=== PATIENT | male | born 1940 | race Caucasian/White ===

== ENCOUNTER 2017-04-14 12:34 | Inpatient (IN) ==
[2017-04-14] MEDS ORDERED: Ipratropium/Albuterol Neb 3 ML IH ONE (12:44)
--- NOTE | 2017-04-14 12:45 | Emergency Department Note ---
START Narrative - START START: I examined this patient and my medical decision-making was reviewed with the Resident Physician. I agree with the documented findings, disposition and treatment plan as described except to the extent set forth below. 77-year-old male presented to our ER [facility] for shortness of breath and elevated troponin. Patient has a history of COPD but does not wear home oxygen. Had been feeling more short of breath recently. Was discovered to have a CO2 of nearly 80 on his ABG at the [facility] as well as an elevated troponin. He has no history of coronary disease. will repeat cxr, abg here admit to hospitalist for copd exacerbation and CO2 retention
[2017-04-14] MEDS ORDERED: Aspirin 81 MG TAB.CHEW PO STA (12:48)
[2017-04-14] MEDS ORDERED: methylPREDNISolone 125 MG/2 ML VIAL IVP ONE (12:48)
--- NOTE | 2017-04-14 13:15 | Emergency Department Note ---
Disposition Clinical Impression: Acute exacerbation of chronic obstructive airways disease, Hypoxia, Hypercapnia , Elevated troponin Dyspnea Qualifiers: Dyspnea type: unspecified Qualified Code(s): R06.00 - Dyspnea, unspecified Disposition: Admitted As Inpatient Condition: Good Time of Disposition: 14:14 SOB HPI - General Chief Complaint: ED Shortness of Breath/Dyspnea Stated Complaint: domenic Time Seen by Provider: 04/14/17 12:41 Source: patient, family, EMS Mode of arrival: EMS Limitations: no limitations Nursing Notes Reviewed: Yes Vital Signs Reviewed: Yes - History of Present Illness 77-year-old male history of COPD not on home oxygen supplementation presents to the ED via EMS from the [facility] with shortness of breath and hypoxia. Patient reports since Sunday, last 4 days he has been congested with nonproductive cough and worsening shortness of breath. He has reported tactile fevers no chills. No chest pain. He does not have inhalers at home. Former smoker quit . He has also been feeling fatigued and not sleeping well. He was seen and evaluated at the [facility] for the symptoms and was found to be hypoxic 80% on room air. He came up appropriately with 2 L nasal cannula oxygen supplementation but with any exertion would drop back down. Patient was placed on BiPAP and sent here for further evaluation. On arrival respiratory was in the room with a BiPAP machine ready for transfer, he appeared in no respiratory distress. He reports significant improvement of his symptoms after breathing treatment. We play some back on 2 L nasal cannula and is oxygen saturation remains 93%. Review of his labs from the [facility] showed elevation of his troponin 0.082 as well as hypercapnia 78 and O2 60. He had a slight acidosis 7.31. Creatinine function is normal 1.03. Patient denies history of cardiac ischemic disease or stent placements. He has history of hypertension. He normally takes a baby aspirin at night, full dose aspirin given here as he denies any bloody stool or blacked tarry stools. He has diminished breath sounds with wheezing bilaterally, steroids given here. Review of his EKG performed it did not reveal acute ischemic changes or ST elevation. A chest x-ray was performed at the facility but no report or disc is available. Will repeat the chest x- ray here. Patient will likely need admission for his hypoxia and likely COPD exacerbation. There in agreement with this plan. Pt Subjective Complaint: shortness of breath, cough - Related Data Home Medications Medication Instructions Recorded Confirmed Aspirin [Adult Low Dose Aspirin EC] 81 mg PO QPM 07/29/15 07/29/15 Docusate [Colace] 100 mg PO QPM 07/29/15 07/29/15 Simvastatin [Zocor] 10 mg PO DAILY 07/29/15 07/29/15 Vit A/C/E AC/Znox/Cupric Oxide 1 tab PO DAILY 07/29/15 07/29/15 [Eye Vitamin-Minerals Tablet] Allergies Allergy/AdvReac Type Severity Reaction Status Date / Time No Known Allergies Allergy Verified 04/14/17 13:15 All systems ED: reviewed and negative except as stated. Review of Systems: As Per HPI Constitutional: Reports: fever (Tactile) ENT ED: Reports: congestion Cardiovascular: Reports: dyspnea on exertion. Denies: chest pain Respiratory: Reports: cough, dyspnea, wheezes Gastrointestinal: Denies: abdominal pain, nausea, vomiting Genitourinary: Denies: urgency, dysuria Musculoskeletal: Denies: back pain, neck pain Integumentary: Denies: rash, abrasion, lesions Neurological: Denies: headache Past Medical History - Past Medical History Attestation: Yes The following information was validated with the patient. Source: patient Medical history: Reports: arthritis, cancer, hypertension Surgical history: Reports: prostatectomy Psychiatric history: Reports: no psych history - Social History Smoking Status: Former smoker Alcohol use: Reports: none Drug use: Reports: none Physical Exam - General Limitations: no limitations General appearance: alert, in no apparent distress - Head Head exam: atraumatic, normocephalic, normal inspection - Neck Neck exam: Present: normal inspection, full ROM, trachea midline. Absent: tenderness, meningismus - Chest Chest inspection: Present: normal inspection, symmetric chest wall rise. Absent : tenderness - Respiratory Respiratory exam: Present: wheezes (Diffuse bilaterally). Absent: stridor, accessory muscle use - Expanded Respiratory Exam Location: wheezes: Left, Right, decreased breath sounds: Lower - Cardiovascular Cardiovascular exam: Present: regular rate, normal rhythm, normal heart sounds - Abdominal Exam Abdominal exam: Present: soft, Non-Tender, normal bowel sounds. Absent: tenderness, distention, guarding, rebound, rigidity - Extremities Exam Extremities exam: Present: normal inspection, full ROM, normal capillary refill. Absent: tenderness, pedal edema, calf tenderness - Neurological Exam Neurological exam: Present: alert, oriented X3 - Skin Skin exam: Present: warm, dry, intact, normal color. Absent: rash, cyanosis, diaphoresis Course Course Narrative: 77-year-old male presents with worsening dyspnea, respiratory distress, hypoxia. Patient initially arrived on BiPAP with good oxygen saturation. We play some on 2 L nasal cannula with good oxygen saturation in the lower 90s. He appears in no respiratory distress at this time. No chest pain. History upon and was elevated at outside facility 0.082. He denies any chest pain during the last week or today. He was given an aspirin. Continues to be wheezing bilaterally on examination. Plan admit for COPD exacerbation. Repeat chest x-ray to evaluate for possible pneumonia. Does not appear he was given steroids, given does here. Patient is agreeable to admission. No further questions or interventions at this time. - Reevaluation(s) Reevaluation #1: Repeat of his arterial blood gas shows retained CO2 at 79. His oxygen saturation as improved 88 from 60. pH is 7.3. This is likely a acute or chronic hypoxia hypercapnia as he is partially compensated with HCO3 of 40. Patient remains awake alert and oriented to person place and time. No acute respiratory distress. At this time will hold off on BiPAP and continue nasal cannula. Goal of oxygen saturation 92% patients in agreement with plan for admission. Impression is hypoxia, hypercapnia, COPD exacerbation, elevated troponin. Repeat troponin performed here will place him on 1 mg per kilogram Lovenox. Again he denies any blood in the stool or black tarry stools. - Consultations Consultation #1: Spoke with on-call hospitalist blanca Whaley to admit for COPD exacerbation, wheezing, hypoxia, hypercapnia suspect acute on chronic, elevated troponin. No further orders at this time Time: 14:13 Vital Signs Temperature 98.5 F 04/14/17 12:46 Pulse Rate 79 04/14/17 12:46 Respiratory Rate 20 04/14/17 12:46 Blood Pressure 135/82 04/14/17 12:46 O2 Sat by Pulse Oximetry 93 04/14/17 12:46 Temperature 98.5 F 04/14/17 12:46 Pulse Rate 79 04/14/17 13:22 Respiratory Rate 20 04/14/17 13:22 Blood Pressure 146/67 04/14/17 13:22 O2 Sat by Pulse Oximetry 96 04/14/17 13:22 Oxygen Delivery Oxygen Delivery Nasal Cannula Shortness of Breath/Dyspnea - MDM Narrative Medical decision making narrative: Patient was discussed with my attending physician who agrees with ED management and final disposition. They independently evaluated the patient. Please refer to their attestation to this encounter for additional information. This note was generated by [employer] voice recognition software and as a result grammatical or spelling errors may occur using this program. - Medical Records Medical records reviewed: Yes I reviewed the patient's medical records. - Lab Data Lab results reviewed: Yes I reviewed the patient's lab results. Lab Results 04/14/17 Range/Units 13:49 ABG pH 7.30 L (7.32-7.45) pH Units ABG pCO2 79 H* (35-45) mmHg ABG pO2 88 (85-104) mmHg ABG HCO3 40 H (21-27) mEq/L ABG Total CO2 42 H (20-26) mEq/L ABG O2 Saturation 95 (95-98) % ABG Base Excess 9 H (-2 to 3) mEq/L Person Notif of Crit RESP - Radiology Data Radiology results reviewed: Yes I reviewed the patient's radiology results. Chest X-Ray 04/14/17 12:45 IMPRESSION: Low lung volumes without acute disease. D/ / Amandeep Helton MD / Amandeep Helton MD Interpreting Provider: Amandeep Helton MD - EKG Data EKG attestation: Yes I reviewed and interpreted this EKG. EKG results narrative: EKG performed 1238 normal sinus rhythm 78 bpm normal axis, no ST elevations or depression, no T wave inversion, good R wave progression, intervals are within normal limits. Compared to old EKG performed outside hospital at 0922 shows similar consistent findings. Incomplete right bundle branch block seen in V1 no ST elevations or depressions. No acute ischemic changes.
[2017-04-14 13:56] LABS: ABG Base Excess 9 mEq/L (-2 to 3); ABG HCO3 40 mEq/L (21-27); ABG Oxygen Saturation 95 % (95-98); ABG PCO2 79 mmHg (35-45); ABG PO2 88 mmHg (85-104); ABG TCO2 42 mEq/L (20-26)
[2017-04-14] MEDS ORDERED: *HR* Enoxaparin 100 MG/ML SYRINGE SQ STA (14:15)
[2017-04-14] MEDS ORDERED: Naloxone 0.4 MG/ML INJ IVP PRN (15:16)
[2017-04-14] MEDS ORDERED: Acetaminophen 325 MG TABLET PO PRN (15:16)
[2017-04-14] MEDS ORDERED: Ondansetron 4 MG/2 ML VIAL IVP PRN (15:16)
[2017-04-14] MEDS ORDERED: Albuterol 2.5 MG/3 ML NEBULIZER IH PRN (15:21)
--- NOTE | 2017-04-14 15:37 | Internal Med History&Physical ---
Date of Encounter: 04/14/17 Time of Encounter: 15:37 Assessment and Plan (1) Respiratory failure with hypoxia and hypercapnia Current visit: Yes Status: Acute Patient has hx of COPD and is not oxygen dependent, suspect failure secondary to COPD exacerbation. continue with oxygen titrating to maintain spo2>92% will check for flu as well Qualifiers: Chronicity: acute Qualified Code(s): J96.01 - Acute respiratory failure with hypoxia; J96.02 - Acute respiratory failure with hypercapnia; J96.02 - Acute respiratory failure with hypercapnia; J96.02 - Acute respiratory failure with hypercapnia (2) Acute exacerbation of chronic obstructive airways disease Current visit: Yes Status: Acute 1 Has hx of COPD non oxygen dependent Has been experiencing SOB x 4 days with cough and congestion. CXR negative ABG acidosis, continue with oxygen titrating to maintain SPO2 > 92% continue with bronchodilators continue with steroid to taper will swab for flu- did have sick exposure- no flu vaccine (3) Elevated troponin Current visit: Yes Status: Acute 1 on presentation 0.08 now 0.06 trending down, suspect demand ischemia. No CP no change in EKG we will continue to trend cont cardiac monitoring If any chest pain develops or Trop trends up will start Heparin drip and consult cardiology cont with ASA (4) DVT prophylaxis Current visit: No Status: Acute lovenox (5) Hypertension Current visit: Yes Status: Chronic continue with home medications lisinopril HCTZ Qualifiers: Hypertension type: essential hypertension Qualified Code(s): I10 - Essential (primary) hypertension Internal Medicine - H&P: HPI Chief complaint: SOB Admitted From: Emergency Dept Plans for Post Hospital Care: Home History of present illness: Mr. Bright is a 77 year old male past medical hx of of COPD HTN prostrate CA 8 yrs ago. Patient has been experiencing SOB congestion and nonproductive cough for the past 4 days . He admits to subjective fevers no chills. He denies any CP. He has not been sleeping well. He was exposed to illness, URI. He is previous smoker quit in 1989. He denies any cardiac hx [facility] found to be hypoxic with SpO2 in the 80% on room air. Lab work did reveal elevated troponin . He was plaved on 2L NC and eventually placed on Bipap He was transferred to this facility for further evaluation. ABG obtained upon arrival ABG did show resp acidosis . Acccording to records he was wheezing he was given duonebs steroids and breathing state improved. He has been admited for further workup and evaluation. Presently he denies any CP or SOB hemodynamically stable I reviewed this case with DR Harris Past Med Surg Social Fam HX - Past Medical History Medical history: arthritis, cancer, hypertension Psychiatric history: no psych history - Past Surgical History Surgical History: prostatectomy - Social History Smoking Status: Former smoker Alcohol use: none Drug use: none - Family History Mother Living Status: Hx Family Cardiac Disorders: No Hx Family Medical Disorders: Yes (multiple sclerosis) Father Living Status: Hx Family Cardiac Disorders: No Brother Living Status: Hx Family Cardiac Disorders: Yes Internal Medicine - H&P: Meds Aspirin [Adult Low Dose Aspirin EC] 81 mg PO QPM 07/29/15 [History] Docusate [Colace] 100 mg PO QPM 07/29/15 [History] Vit A/C/E AC/Znox/Cupric Oxide [Eye Vitamin-Minerals Tablet] 1 tab PO DAILY 11/05 [History] Cholecalciferol (Vitamin D3) [Vitamin D] 2,000 unit PO DAILY 04/14/17 [History] Hydrochlorothiazide [Microzide] 12.5 mg PO DAILY 04/14/17 [History] Lisinopril [Zestril] 10 mg PO DAILY 04/14/17 [History] Tamsulosin [Flomax] 0.8 mg PO DAILY 04/14/17 [History] 3 Allergy/AdvReac Type Severity Reaction Status Date / Time No Known Allergies Allergy Verified 04/14/17 13:15 All Systems PM: A 10-system review of systems was performed and is negative for pertinent findings except as documented above in the HPI. - Constitutional Constitutional: fatigue, no chills, no fever(s), no night sweats - EENT Eyes: no change in vision, no discharge, no pain, no photophobia Nose, mouth and throat: no dysphagia, no nasal discharge, no neck pain, no sore throat - Cardiovascular Cardiovascular ROS IM: dyspnea, no chest pain, no diaphoresis, no lightheadedness, no palpitations, no syncope - Respiratory Respiratory: cough, wheezing, no dyspnea, no excessive phlegm production - Gastrointestinal Gastrointestinal: no abdominal pain, no diarrhea, no hematemesis, no hematochezia, no melena, no nausea, no vomiting - Musculoskeletal Musculoskeletal ROS IM: no numbness, no tingling - Integumentary Integumentary IM: no rash, no unusual bruising - Neurological Neurological ROS: no confusion, no convulsions, no focal weakness, no numbness, no tingling, no tremor(s) - Hematologic/Lymphatic Hematologic/Lymphatic: no easy bruising - Constitutional Vitals: Temp Pulse Resp BP Pulse Ox 98.5 F 79 20 146/67 96 04/14/17 12:46 04/14/17 13:22 04/14/17 13:22 04/14/17 13:22 04/14/17 13:22 General appearance: Present: A&O X 3, answers questions appropriately - Head Head exam: Present: atraumatic, normocephalic - Eye Eye exam: Present: PERRL, conjuntiva pink, sclera anicteric Pupils: Present: PERRL - Neck Neck exam general surgery: Present: supple, trachea midline. Absent: lymphadenopathy - Respiratory Respiratory exam: Present: decreased breath sounds, CTAB. Absent: accessory muscle use, rales, rhonchi, wheezes - Cardiovascular Cardiovascular exam: Present: RRR, +S1, +S2. Absent: diastolic murmur, gallop, rubs, systolic murmur - GI/Abdominal GI/Abdominal exam: Present: normal bowel sounds, soft, no peritoneal signs. Absent: distended, tenderness - Extremities Exam Extremities exam: Present: pedal edema, warm, radial pulses palpable and symmetrical. Absent: calf tenderness, cyanotic - Neurological Exam Neurological exam: Present: CN II-XII intact, oriented X3, no focal deficits. Absent: pronater drift, facial droop, speech deficit - Skin Skin exam: Present: dry, intact Internal Med - H&P Results - Labs Labs: Cardiac Enzymes 04/14/17 Range/Units 14:54 Troponin I 0.06 H* (< 0.04) ng/mL - EKG Data EKG shows normal: sinus rhythm - Diagnostic Studies Other Images Additional comments: Chest X-Ray 04/14/17 12:45 IMPRESSION: Low lung volumes without acute disease. D/ / Amandeep Helton MD / Amandeep Helton MD Interpreting Provider: Amandeep Helton MD
[2017-04-14] MEDS: Ipratropium/Albuterol Neb 3 ML IH SCH ×3 (16:18→23:39)
[2017-04-14] MEDS: MethylPREDNISolone 40 MG/ML VIAL IVP SCH ×2 (17:49→23:18)
[2017-04-14] MEDS: Aspirin Enteric Coated 81 MG Tablet PO SCH (17:49)
[2017-04-15 01:57] LABS: Basophils % 0.1 %; Hematocrit 41.3 % (37.5-50.1); Immature Platelets 3.8 % (1.1-6.1); Lymphocytes # 0.8 K/mcL (0.6-4.6); Lymphocytes % 9.7 %; Mean Corpuscular HGB Conc 31.5 g/dL (31.6-35.5); Mean Corpuscular Hemoglobin 31.6 pg (28.0-33.3); Mean Corpuscular Volume 100.2 fL (83.0-100.0); Mean Platelet Volume 10.3 fL (9.4-12.4); Monocytes # 0.1 K/mcL (0.0-1.3); Monocytes % 1.4 %; Neutrophils # 6.9 K/mcL (1.6-8.9); Nucleated Red Blood Cells 0.3 /100 WBC (0); Platelet Count 205 K/mcL (140-400); Red Blood Count 4.12 M/mcL (4.19-5.50); Red Cell Distribution Width 13.9 % (11.5-14.5); Segmented Neutrophils % 87.8 %
[2017-04-15 02:22] LABS: BUN/Creatinine Ratio 23 (6-26); Blood Urea Nitrogen 26 mg/dL (8-23); Calcium 9.1 mg/dL (8.6-10.3); Carbon Dioxide 36 mEq/L (23-29); Chloride 98 mEq/L (98-107); Glucose 257 mg/dL (70-105); Magnesium 1.8 mg/dL (1.6-2.6); Osmolality,Calculated 304 (280-300); Potassium 4.3 mEq/L (3.5-5.1); Sodium 140 mEq/L (136-145); eGFR For African Americans > 60 (> 60); eGFR For Non-African Americans > 60 (> 60)
[2017-04-15] MEDS: Ipratropium/Albuterol Neb 3 ML IH SCH ×6 (03:38→23:42)
[2017-04-15] MEDS: Mag Hydrox/Al Hydrox/Simeth 30 ML UDC PO PRN (04:10)
[2017-04-15] MEDS: hydroCHLOROthiazide 25 MG TABLET PO SCH (11:31)
[2017-04-15] MEDS: MethylPREDNISolone 40 MG/ML VIAL IVP SCH ×2 (13:28→20:18)
--- NOTE | 2017-04-15 16:47 | Internal Med Progress Note ---
Date of Encounter: 04/16/17 Time of Encounter: 13:45 - Assessment and plan (1) Acute exacerbation of chronic obstructive airways disease Current Visit: Yes Status: Acute Assessment and plan: 77/male Admitted with exacerbation of COPD. Presently patient is using accessory muscles of respiration. Plan: Intravenous antibiotics Intravenous steroids Bronchodilators Close monitoring of the respiratory status if clinically worsen then should consider ICU. (2) Hypercapnia Current Visit: No Status: Acute Assessment and plan: Hypercapnia is likely secondary to the chronic hypercapnic state due to the underlying COPD. We will continue present management for now. (3) DVT prophylaxis Current Visit: No Status: Acute Assessment and plan: Please see order chart. - Subjective Interval history: Patient seen and examined. Chart reviewed. Patient is comfortably lying in the bed. Patient patient is occasional shortness of breath. Patient is using accessory muscles of respiration. - Constitutional Vitals: Temp Pulse Resp BP Pulse Ox 97.9 F 101 18 113/61 94 04/15/17 16:11 04/15/17 16:11 04/15/17 16:11 04/15/17 16:11 04/15/17 16:11 General appearance: Present: A&O X 3, answers questions appropriately - Head Head exam: Present: atraumatic, normocephalic - Eye Eye exam: Present: PERRL, conjuntiva pink, sclera anicteric Pupils: Present: PERRL - Neck Neck exam general surgery: Present: supple, trachea midline. Absent: lymphadenopathy - Respiratory Respiratory exam: Present: CTAB, rhonchi, wheezes. Absent: accessory muscle use , rales - Cardiovascular Cardiovascular exam: Present: RRR, +S1, +S2. Absent: diastolic murmur, gallop, rubs, systolic murmur - GI/Abdominal GI/Abdominal exam: Present: normal bowel sounds, soft, no peritoneal signs. Absent: distended, tenderness - Extremities Exam Extremities exam: Present: warm, radial pulses palpable and symmetrical. Absent : calf tenderness, cyanotic, pedal edema - Neurological Exam Neurological exam: Present: CN II-XII intact, oriented X3, no focal deficits. Absent: pronater drift, facial droop, speech deficit - Skin Skin exam: Present: dry, intact Internal Medicine: Result - Labs CBC & Chem 7: 04/15/17 01:38 04/15/17 01:38 Labs: Short CBC 04/15/17 Range/Units 01:38 WBC 7.9 (4.3-11.1) K/mcL Hgb 13.0 (12.9-16.9) g/dL Hct 41.3 (37.5-50.1) % Plt Count 205 (140-400) K/mcL Neutrophils # 6.9 (1.6-8.9) K/mcL BMP 04/15/17 01:38 Sodium 140 Potassium 4.3 Chloride 98 Carbon Dioxide 36 H BUN 26 H Creatinine 1.12 Glucose 257 H Calcium 9.1 Cardiac Enzymes 04/14/17 04/15/17 Range/Units 19:33 01:38 Troponin I 0.05 H* 0.04 H* (< 0.04) ng/mL - ABG Interpretation ABG results: ABG ABG pH 7.30 pH Units (7.32-7.45) L 04/14/17 13:49 ABG pCO2 79 mmHg (35-45) H* 04/14/17 13:49 ABG pO2 88 mmHg (85-104) 04/14/17 13:49 ABG O2 Saturation 95 % (95-98) 04/14/17 13:49 Consult Discharge Plan - Plan [facility]errals: [facility] [Primary Care Provider] -
[2017-04-15] MEDS: Aspirin Enteric Coated 81 MG Tablet PO SCH (20:18)
[2017-04-16] MEDS: Mag Hydrox/Al Hydrox/Simeth 30 ML UDC PO PRN (01:18)
[2017-04-16] MEDS: Ipratropium/Albuterol Neb 3 ML IH SCH ×6 (03:49→23:35)
[2017-04-16] MEDS: MethylPREDNISolone 40 MG/ML VIAL IVP SCH ×6 (04:07→23:44)
[2017-04-16] MEDS: hydroCHLOROthiazide 25 MG TABLET PO SCH (07:55)
[2017-04-16] MEDS ORDERED: 0.9 % Sodium Chloride 1,000 ML ONE (12:26)
[2017-04-16] MEDS: dilTIAZem HCl 100 MG in D5% in Water 50 ML IVC SCH ×2 (12:32→16:23)
--- NOTE | 2017-04-16 14:02 | Internal Med Progress Note ---
Date of Encounter: 04/16/17 Time of Encounter: 13:59 - Assessment and plan (1) Atrial fibrillation with rapid ventricular response Current Visit: Yes Status: Acute Assessment and plan: 77/Male Admitted with COPD exacerbation. This is likely secondary to influenza A. This morning noted that patient has a palpitation and shortness of breath. EKG: Atrial fibrillation with rapid ventricular rate. Echocardiogram: 07/30/2015: EF 60%, RVSP 37, no valvular abnormalities. Stress test: 07/30/2015: Perfusion imaging negative for any ischemia, gaited EF 70 % Plan: We will start Cardizem drip to begin with 5 mg per hour and titrate to keep heart rate less than 100/m We will add beta johan 5 mg intravenously every 8 when necessary to keep heart rate low 100. We will start patient on Lovenox weight-based as anticoagulation. We will get echocardiogram. I spoke on the cardiology, Dr. Choudhary. Discussed above plan with him and he agreed. (2) Acute exacerbation of chronic obstructive airways disease Current Visit: Yes Status: Acute Assessment and plan: 77/male Admitted with exacerbation of COPD. Presently patient is using accessory muscles of respiration. Plan: Intravenous antibiotics Intravenous steroids Bronchodilators Close monitoring of the respiratory status if clinically worsen then should consider ICU. 04/16/2017. Patient's COPD status is as same as what it was yesterday. no new changes present. We will continue present treatment. (3) Hypercapnia Current Visit: No Status: Acute Assessment and plan: Hypercapnia is likely secondary to the chronic hypercapnic state due to the underlying COPD. We will continue present management for now. 04/16/2017. We will continue present management (4) Influenza A Current Visit: Yes Status: Acute Assessment and plan: Presently on Tamiflu. (5) DVT prophylaxis Current Visit: No Status: Acute Assessment and plan: Please see order chart. - Subjective Interval history: Patient seen and examined. Chart reviewed. Patient is comfortably lying in the bed. Patient patient is occasional shortness of breath. Patient is using accessory muscles of respiration. 04/16/2017. Patient seen and examined. Patient is comfortably sitting in the bed. patient is short of breath. Noted that patient's heart rate is in the 140s. I asked RN to get of urgent EKG. - Constitutional Vitals: Temp Pulse Resp BP Pulse Ox 98.9 F 162 17 129/73 94 04/16/17 13:21 04/16/17 13:21 04/16/17 13:21 04/16/17 13:21 04/16/17 13:21 General appearance: Present: A&O X 3, pleasant, no acute distress, answers questions appropriately - Head Head exam: Present: atraumatic, normocephalic - Eye Eye exam: Present: PERRL, conjuntiva pink, sclera anicteric Pupils: Present: PERRL - Neck Neck exam general surgery: Present: supple, trachea midline. Absent: lymphadenopathy - Respiratory Respiratory exam: Present: CTAB, rhonchi, wheezes. Absent: accessory muscle use , rales - Cardiovascular Cardiovascular exam: Present: RRR, +S1, +S2. Absent: diastolic murmur, gallop, rubs, systolic murmur - GI/Abdominal GI/Abdominal exam: Present: normal bowel sounds, soft, no peritoneal signs. Absent: distended, tenderness - Extremities Exam Extremities exam: Present: warm, radial pulses palpable and symmetrical. Absent : calf tenderness, cyanotic, pedal edema - Neurological Exam Neurological exam: Present: CN II-XII intact, oriented X3, no focal deficits. Absent: pronater drift, facial droop, speech deficit - Skin Skin exam: Present: dry, intact Internal Medicine: Result - Labs CBC & Chem 7: 04/15/17 01:38 04/15/17 01:38 - ABG Interpretation ABG results: ABG ABG pH 7.30 pH Units (7.32-7.45) L 04/14/17 13:49 ABG pCO2 79 mmHg (35-45) H* 04/14/17 13:49 ABG pO2 88 mmHg (85-104) 04/14/17 13:49 ABG O2 Saturation 95 % (95-98) 04/14/17 13:49 Consult Discharge Plan - Plan [facility]errals: [facility] [Primary Care Provider] -
[2017-04-16] MEDS ORDERED: *HR* Metoprolol 5 MG/5 ML VIAL IVP ONE (14:16)
[2017-04-16] MEDS ORDERED: *HR* Metoprolol 5 MG/5 ML VIAL IVP PRN ×2 (14:17→16:08)
[2017-04-16 15:03] LABS: Hematocrit 39.7 % (37.5-50.1); Hemoglobin 12.7 g/dL (12.9-16.9); Immature Granulocytes % 0.9 % (0-4); Lymphocytes # 0.5 K/mcL (0.6-4.6); Lymphocytes % 3.7 %; Mean Corpuscular Hemoglobin 32.1 pg (28.0-33.3); Mean Corpuscular Volume 100.3 fL (83.0-100.0); Mean Platelet Volume 10.1 fL (9.4-12.4); Monocytes # 0.6 K/mcL (0.0-1.3); Monocytes % 4.4 %; Neutrophils # 12.6 K/mcL (1.6-8.9); Platelet Count 223 K/mcL (140-400); Red Blood Count 3.96 M/mcL (4.19-5.50)
[2017-04-16 15:15] LABS: Alanine Aminotransferase 33 Units/L (7-52); Albumin 3.6 g/dL (3.5-5.7); Albumin/Globulin Ratio 1.4 (1.1-2.2); Alkaline Phosphatase 85 Units/L (34-104); Aspartate Amino Transferase 32 Units/L (13-39); BUN/Creatinine Ratio 32 (6-26); Bilirubin,Total 0.2 mg/dL (0.3-1.0); Blood Urea Nitrogen 36 mg/dL (8-23); Calcium 8.9 mg/dL (8.6-10.3); Carbon Dioxide 36 mEq/L (23-29); Chloride 97 mEq/L (98-107); Globulin 2.6 g/dL (2.4-3.5); Glucose 213 mg/dL (70-105); Osmolality,Calculated 305 (280-300); Potassium 4.6 mEq/L (3.5-5.1); Sodium 140 mEq/L (136-145); Total Protein 6.2 g/dL (6.4-8.9); eGFR For African Americans > 60 (> 60); eGFR For Non-African Americans > 60 (> 60)
[2017-04-16] MEDS ORDERED: 0.9 % Sodium Chloride 500 ML ONE (16:09)
[2017-04-16] MEDS: Aspirin Enteric Coated 81 MG Tablet PO SCH (17:59)
[2017-04-16] MEDS: *HR* Enoxaparin 100 MG/ML SYRINGE SQ SCH (18:00)
[2017-04-17] MEDS: Ipratropium/Albuterol Neb 3 ML IH SCH ×6 (04:11→23:39)
[2017-04-17 04:43] LABS: Alanine Aminotransferase 37 Units/L (7-52); Albumin 3.4 g/dL (3.5-5.7); Albumin/Globulin Ratio 1.5 (1.1-2.2); Alkaline Phosphatase 76 Units/L (34-104); Aspartate Amino Transferase 30 Units/L (13-39); BUN/Creatinine Ratio 38 (6-26); Bilirubin,Total 0.2 mg/dL (0.3-1.0); Blood Urea Nitrogen 42 mg/dL (8-23); Calcium 8.6 mg/dL (8.6-10.3); Carbon Dioxide 36 mEq/L (23-29); Chloride 98 mEq/L (98-107); Globulin 2.3 g/dL (2.4-3.5); Glucose 164 mg/dL (70-105); Osmolality,Calculated 302 (280-300); Potassium 4.7 mEq/L (3.5-5.1); Sodium 139 mEq/L (136-145); Total Protein 5.7 g/dL (6.4-8.9); eGFR For African Americans > 60 (> 60); eGFR For Non-African Americans > 60 (> 60)
[2017-04-17 04:48] LABS: Basophils % 0.1 %; Hematocrit 38.2 % (37.5-50.1); Hemoglobin 11.8 g/dL (12.9-16.9); Lymphocytes # 0.7 K/mcL (0.6-4.6); Lymphocytes % 6.2 %; Mean Corpuscular HGB Conc 30.9 g/dL (31.6-35.5); Mean Corpuscular Hemoglobin 31.2 pg (28.0-33.3); Mean Corpuscular Volume 101.1 fL (83.0-100.0); Mean Platelet Volume 10.6 fL (9.4-12.4); Monocytes # 0.4 K/mcL (0.0-1.3); Monocytes % 3.2 %; Neutrophils # 10.2 K/mcL (1.6-8.9); Platelet Count 217 K/mcL (140-400); Red Blood Count 3.78 M/mcL (4.19-5.50); Red Cell Distribution Width 14.2 % (11.5-14.5); Segmented Neutrophils % 89.5 %
[2017-04-17] MEDS: MethylPREDNISolone 40 MG/ML VIAL IVP SCH ×3 (05:11→18:32)
[2017-04-17] MEDS: *HR* Enoxaparin 100 MG/ML SYRINGE SQ SCH (05:12)
[2017-04-17] MEDS: Mag Hydrox/Al Hydrox/Simeth 30 ML UDC PO PRN ×2 (07:53→21:04)
[2017-04-17] MEDS: hydroCHLOROthiazide 25 MG TABLET PO SCH (07:53)
--- NOTE | 2017-04-17 10:13 | Cardiology Consult Note ---
<Usama Watts - Last Filed: 04/17/17 11:21> Date of Encounter: 04/17/17 Time of Encounter: 10:08 Assessment and Plan (1) Atrial fibrillation with rapid ventricular response Current Visit: Yes Status: Acute Developed atrial fibrillation with RVR HR 163 bpm on EKG. Converted to NSR on cardizem gtt. Cardizem gtt was weaned off and he developed PAF this morning. Start oral cardizem. Likely triggered by influenza and COPD exacerbation. TTE completed shows:LVEF 65-70%. Indeterminate diastolic function. Normal right ventricular structure and function. Mild tricuspid regurgitation. Moderate pulmonary hypertension. Stress test 07/2015 negative for ischemia. TSH ordered. He is a CHADS VASc=2 for HTN and age. AC with warfarin or NOAC discussed. Indication, use, and adverse effects discussed. He is agreeable to NOAC. [facility] Start eliquis. (2) Elevated troponin Current Visit: Yes Status: Acute Mild troponin elevation. Initial EKG with no ST changes. EKG with afib with RVR with ST depression noted, likely due to demand ischemia from elevated HR. Troponin likely demand ischemia from influenza and COPD. Noted to be hypoxic during my exam. SPO2 89% on 2L. He c/o "heart burn symptoms" that correlate with eating. Recommend PPI and continue monitor. TTE shows preserved EF. No WMA. Discussion w patient/family: The assessment and plan as outlined above was discussed with the patient and/or family members who expressed understanding and agreement. All questions were answered. Thank you for involving us in the care of your patient. Please call with any questions. History of Present Illness Consult date: 04/16/16 Requesting physician: Humberto Cochran Consult reason: Cough, fevers Chief complaint: Cough, chills, fevers, heartburn History of present illness: Mr. Bright is a 77 year old male with HTN, COPD, and prostate cancer who presents with the c/o one week og cough, congestion, and fever. He was fond to be positive for influenza A. He was admitted for COPD exacerbation and influenza. During his hospital stay he developed atrial fibrillation with RVR, HR up to 190 's. He was placed on cardizem gtt and lovenox. He converted to NSr overnight. He was seen to have PAf throughout the morning today. He states that he does not feel his heart race. He c/o midepigastric burning that occurs when he eats anything and sometimes when he has an empty stomach. Denies exertional chest pain. Reports SOB with exertion prior to admission. C/o intermittent BLE at times when sitting. Past Med Surg Social Fam HX - Past Medical History Attestation: Yes The following information was validated with the patient. Medical history: arthritis, cancer, hypertension, malignancy (Prostate Ca) Psychiatric history: no psych history - Past Surgical History Surgical History: prostatectomy - Social History Smoking Status: Former smoker Alcohol use: none Drug use: none - Family History Mother Living Status: Hx Family Cardiac Disorders: No Hx Family Medical Disorders: Yes (multiple sclerosis) Father Living Status: Hx Family Cardiac Disorders: No Brother Living Status: Hx Family Cardiac Disorders: Yes Medications and Allergies Aspirin [Adult Low Dose Aspirin EC] 81 mg PO QPM 07/29/15 [History] Docusate [Colace] 100 mg PO QPM 07/29/15 [History] Vit A/C/E AC/Znox/Cupric Oxide [Eye Vitamin-Minerals Tablet] 1 tab PO DAILY 11/05 [History] Cholecalciferol (Vitamin D3) [Vitamin D] 2,000 unit PO DAILY 04/14/17 [History] Hydrochlorothiazide [Microzide] 12.5 mg PO DAILY 04/14/17 [History] Lisinopril [Zestril] 10 mg PO DAILY 04/14/17 [History] Tamsulosin [Flomax] 0.8 mg PO DAILY 04/14/17 [History] 3 Allergy/AdvReac Type Severity Reaction Status Date / Time No Known Allergies Allergy Verified 04/14/17 13:15 All Systems Review: A 10-system review of systems was performed and is negative for pertinent findings except as documented above in the HPI. Physical Examination Vital Signs, Last 4 Hours Temp Pulse Resp BP Pulse Ox 04/17/17 07:40 15 95 04/17/17 07:13 98.3 F 84 15 110/72 95 Chest X-Ray 04/14/17 12:45 IMPRESSION: Low lung volumes without acute disease. D/ / Amandeep Helton MD / Amandeep Helton MD Interpreting Provider: Amandeep Helton MD Echocardiogram 04/17/17 14:19 Impressions: LVEF 65-70%. Indeterminate diastolic function. Normal right ventricular structure and function. Mild tricuspid regurgitation. Moderate pulmonary hypertension. General: Conversant, No Apparent Distress HEENT: Atraumatic, Normocephaly, Mucus Membranes Moist Neck: No JVD, Normal carotid pulses Cardiac: Normal S1 and S2, No Murmur, Other (Irregularly irregular) Lungs: Other (respirations slightly labored, rhonci scattered throughout posteriorly. ) Neuro: Alert and responsive, No focal deficits noted Abdomen: Soft, Non-Tender Skin: No rashes noted on visualized skin Musculoskeletal: No Chest Wall Tenderness Extremities: No Clubbing, No Cyanosis, Normal Pulses, Other (1+ edema BLE) Results 04/17/17 03:50 04/17/17 03:50 Lab Results 04/16/17 04/16/17 04/17/17 14:47 14:47 03:50 WBC 13.8 H D 11.4 H Hgb 12.7 L 11.8 L Hct 39.7 38.2 Plt Count 223 217 Sodium 140 Potassium 4.6 Chloride 97 L Carbon Dioxide 36 H BUN 36 H Creatinine 1.13 Glucose 213 H Calcium 8.9 Total Bilirubin 0.2 L AST 32 ALT 33 Alkaline Phosphatase 85 04/17/17 03:50 WBC Hgb Hct Plt Count Sodium 139 Potassium 4.7 Chloride 98 Carbon Dioxide 36 H BUN 42 H Creatinine 1.11 Glucose 164 H Calcium 8.6 Total Bilirubin 0.2 L AST 30 ALT 37 Alkaline Phosphatase 76 - Imaging and Cardiology Stress Test: report reviewed Echo: report reviewed - EKG Interpretation EKG results cardiology: personally reviewed Consult Discharge Plan - Plan [facility]errals: [facility] [Primary Care Provider[facility] - 04/25/17 9:30 am <Daniel Cowart - Last Filed: 04/18/17 11:10> Date of Encounter: 04/17/17 Time of Encounter: 19:00 - Attending Attestation I have personally performed a face to face evaluation on this patient. I have reviewed and agree with the care plan. History and Exam by me shows: 1. A fib with RVR: New onset, no previous history, initial RVR controlled with IV dilt, discontinued when converted to NSR, continues to have short break through episodes, will begin PO diltiazem, follow clinically. Pt is a candidate to begin systemic anticoagulation, follow after hospital discharge with outpatient holter monitor, as pt is unaware when he goes in and out of a fib with controlled ventricular response, may have much larger a fib burden than recognized as he is asymptomatic, Evaluating for Eliquis coverage with [place] where pt gets his medications and primary care. 2. Elevated troponin: minimal, no new EKG findings to suggest ischeia, previous stress imaging 07/2015 negative for ischemia or previous infarction, elevation most consistent with demand ischemia, will continue to monitor trend and sequential EKGs. 3. Influenza A; symptoms improving with IV rehydration and tambiflu. 4. Chest pain: symptoms most consistent with GERD, consider start PPi and follow clinically. 5. COPD: mild exacerbation, not echo shows mild to moderate elevation of pulmonary pressures consistent with mild to moderate pulmonary hypertension, would repeat in 6 to 8 weeks, further recommendations pending those images. Assessment and Plan Discussion w patient/family: The assessment and plan as outlined above was discussed with the patient and/or family members who expressed understanding and agreement. All questions were answered. Thank you for involving us in the care of your patient. Please call with any questions. History of Present Illness History of present illness: Mr. Bright is a 77 year old male All Systems Review: A 10-system review of systems was performed and is negative for pertinent findings except as documented above in the HPI. Physical Examination Vital Signs, Last 4 Hours Temp Pulse Resp BP Pulse Ox 04/18/17 09:00 16 92 04/18/17 07:06 99.3 F 82 20 110/90 93 Results 04/18/17 05:54 04/18/17 05:54 Lab Results 04/17/17 04/18/17 04/18/17 03:50 05:54 05:54 WBC 11.6 H Hgb 13.7 D Hct 42.8 Plt Count 232 Sodium 139 139 Potassium 4.7 4.6 Chloride 98 96 L Carbon Dioxide 36 H 38 H BUN 42 H 41 H Creatinine 1.11 0.93 Glucose 164 H 152 H Calcium 8.6 9.0 Total Bilirubin 0.2 L 0.3 AST 30 26 ALT 37 47 Alkaline Phosphatase 76 89 TSH 0.207 L
[2017-04-17 11:02] LABS: Thyroid Stimulating Hormone 0.207 mcIU/mL (0.340-5.600)
[2017-04-17] MEDS: Diltiazem CD (24hr) 120 MG CAPSULE PO SCH (11:12)
--- NOTE | 2017-04-17 13:59 | Internal Med Progress Note ---
Date of Encounter: 04/17/17 Time of Encounter: 10:10 - Assessment and plan (1) Atrial fibrillation with rapid ventricular response Current Visit: Yes Status: Acute Assessment and plan: Patient has now converted to sinus rhythm. Cardiology has been consulted. Now on oral Cardizem. On anticoagulation with Eliquis. Monitor blood counts and renal function. Moderate risk for complications. (2) Acute exacerbation of chronic obstructive airways disease Current Visit: Yes Status: Acute Assessment and plan: On bronchodilators. We will taper to when necessary use. Also taper steroids. (3) Hypertension Current Visit: Yes Status: Chronic Assessment and plan: Well-controlled. Qualifiers: Hypertension type: essential hypertension Qualified Code(s): I10 - Essential (primary) hypertension (4) Influenza A Current Visit: Yes Status: Acute Assessment and plan: On Tamiflu. Complete 5 day course. (5) DVT prophylaxis Current Visit: No Status: Acute Assessment and plan: On anticoagulation with Eliquis - Subjective Interval history: Patient is sitting up in bed. Does continue to have some shortness of breath although it is improving overall. Remains on O2 supplementation. No chest pain. No palpitations. No dizziness or lightheadedness. Does have cough with minimal phlegm. - Constitutional Vitals: Temp Pulse Resp BP Pulse Ox 98.2 F 100 20 117/67 19 04/17/17 11:21 04/17/17 11:21 04/17/17 11:21 04/17/17 11:21 04/17/17 11:21 General appearance: Present: A&O X 3, pleasant, no acute distress, answers questions appropriately - Respiratory Respiratory exam: Present: CTAB. Absent: accessory muscle use, rales, rhonchi, wheezes - Cardiovascular Cardiovascular exam: Present: RRR, +S1, +S2. Absent: diastolic murmur, gallop, rubs, systolic murmur - GI/Abdominal GI/Abdominal exam: Present: normal bowel sounds, soft, no peritoneal signs. Absent: distended, tenderness - Extremities Exam Extremities exam: Present: warm, radial pulses palpable and symmetrical. Absent : calf tenderness, cyanotic, pedal edema - Neurological Exam Neurological exam: Present: alert, oriented X3, no focal deficits. Absent: facial droop, speech deficit - Skin Skin exam: Present: dry, intact Internal Medicine: Result - Labs CBC & Chem 7: 04/17/17 03:50 04/17/17 03:50 Labs: Short CBC 04/16/17 04/17/17 Range/Units 14:47 03:50 WBC 13.8 H D 11.4 H (4.3-11.1) K/mcL Hgb 12.7 L 11.8 L (12.9-16.9) g/dL Hct 39.7 38.2 (37.5-50.1) % Plt Count 223 217 (140-400) K/mcL Neutrophils # 12.6 H 10.2 H (1.6-8.9) K/mcL BMP 04/16/17 04/17/17 14:47 03:50 Sodium 140 139 Potassium 4.6 4.7 Chloride 97 L 98 Carbon Dioxide 36 H 36 H BUN 36 H 42 H Creatinine 1.13 1.11 Glucose 213 H 164 H Calcium 8.9 8.6 Liver Function 04/16/17 04/17/17 Range/Units 14:47 03:50 Total Bilirubin 0.2 L 0.2 L (0.3-1.0) mg/dL AST 32 30 (13-39) Units/L ALT 33 37 (7-52) Units/L Alkaline Phosphatase 85 76 (34-104) Units/L Albumin 3.6 3.4 L (3.5-5.7) g/dL - ABG Interpretation ABG results: ABG ABG pH 7.30 pH Units (7.32-7.45) L 04/14/17 13:49 ABG pCO2 79 mmHg (35-45) H* 04/14/17 13:49 ABG pO2 88 mmHg (85-104) 04/14/17 13:49 ABG O2 Saturation 95 % (95-98) 04/14/17 13:49 - Impressions Impressions Echocardiogram 04/17/17 14:19 Impressions: LVEF 65-70%. Indeterminate diastolic function. Normal right ventricular structure and function. Mild tricuspid regurgitation. Moderate pulmonary hypertension. Left Ventricular Wall Motion: Rest Echo Findings All wall segments showed normal motion. Findings: Study Quality * Technically adequate exam. ECG Findings * Normal sinus rhythm. Left Ventricle * LVEF 65-70%. * Indeterminate diastolic function. * Normal LV size and wall thickness. Right Ventricle * Normal right ventricular structure and function. Left Atrium * Severely dilated left atrium. Right Atrium * Normal right atrial size. Aortic Valve * No aortic regurgitation. * Aortic valve not well visualized. * No aortic stenosis. Mitral Valve * No mitral regurgitation. * Normal mitral valve structure. * No mitral stenosis. Tricuspid Valve * Normal tricuspid valve structure. * Mild tricuspid regurgitation. * Estimated RA pressure is 8 mmHg. * Estimated RVSP is 54 mmHg. * Moderate pulmonary hypertension. Pulmonic Valve * Pulmonic valve is not well visualized. * No pulmonic stenosis. * No pulmonic regurgitation. Pulmonary Artery * Pulmonary artery not well visualized. Aorta * Normally sized aortic root. Pericardium * There is no pericardial effusion present. Interatrial Septum * No evidence of PFO by color Doppler. IVC * The IVC is not dilated. * < 50% respiratory change. Consult Discharge Plan - Plan Referrals: [facility] [Primary Care Provider] - 04/25/17 9:30 am
[2017-04-17 14:44] LABS: Triiodothyronine (T3) Free 2.21 pg/mL (2.50-3.90)
[2017-04-17] MEDS: Apixaban 5 MG TABLET PO SCH ×2 (14:57→20:32)
--- NOTE | 2017-04-17 15:56 | Electrocardiograph Report ---
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
--- NOTE | 2017-04-17 16:49 | Electrocardiograph Report ---
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
[2017-04-17] MEDS: Aspirin Enteric Coated 81 MG Tablet PO SCH (18:32)
[2017-04-18] MEDS: MethylPREDNISolone 40 MG/ML VIAL IVP SCH ×3 (02:50→11:43)
[2017-04-18] MEDS: Ipratropium/Albuterol Neb 3 ML IH SCH ×4 (04:13→15:51)
[2017-04-18 06:13] LABS: Basophils % 0.2 %; Hematocrit 42.8 % (37.5-50.1); Immature Granulocytes % 1.9 % (0-4); Lymphocytes # 0.9 K/mcL (0.6-4.6); Mean Corpuscular Hemoglobin 31.9 pg (28.0-33.3); Mean Corpuscular Volume 99.8 fL (83.0-100.0); Mean Platelet Volume 10.3 fL (9.4-12.4); Monocytes # 0.8 K/mcL (0.0-1.3); Monocytes % 6.7 %; Neutrophils # 9.6 K/mcL (1.6-8.9); Platelet Count 232 K/mcL (140-400); Red Blood Count 4.29 M/mcL (4.19-5.50); Red Cell Distribution Width 14.5 % (11.5-14.5); Segmented Neutrophils % 83.2 %
[2017-04-18 06:14] LABS: Hemoglobin 13.7 g/dL (12.9-16.9)
[2017-04-18 06:27] LABS: Alanine Aminotransferase 47 Units/L (7-52); Albumin 3.8 g/dL (3.5-5.7); Albumin/Globulin Ratio 1.5 (1.1-2.2); Alkaline Phosphatase 89 Units/L (34-104); Aspartate Amino Transferase 26 Units/L (13-39); BUN/Creatinine Ratio 44 (6-26); Bilirubin,Total 0.3 mg/dL (0.3-1.0); Blood Urea Nitrogen 41 mg/dL (8-23); Carbon Dioxide 38 mEq/L (23-29); Chloride 96 mEq/L (98-107); Globulin 2.6 g/dL (2.4-3.5); Glucose 152 mg/dL (70-105); Osmolality,Calculated 301 (280-300); Potassium 4.6 mEq/L (3.5-5.1); Sodium 139 mEq/L (136-145); Total Protein 6.4 g/dL (6.4-8.9); eGFR For African Americans > 60 (> 60); eGFR For Non-African Americans > 60 (> 60)
[2017-04-18] MEDS: hydroCHLOROthiazide 25 MG TABLET PO SCH (08:12)
[2017-04-18] MEDS: Diltiazem CD (24hr) 120 MG CAPSULE PO SCH (08:12)
[2017-04-18] MEDS: Apixaban 5 MG TABLET PO SCH (08:12)
[2017-04-18 11:09] VITALS: BP 129/85
[2017-04-18] MEDS ORDERED: Diltiazem SR (12hr) 60 MG CAPSULE PO ONE (12:15)
--- NOTE | 2017-04-18 12:19 | Cardiology Progress Note ---
Date of Encounter: 04/18/17 Time of Encounter: 12:16 Assessment and Plan (1) Atrial fibrillation with rapid ventricular response Current Visit: Yes Status: Acute Developed atrial fibrillation with RVR. HR 163 bpm on EKG. Converted to NSR on cardizem gtt 04/17/17. Oral cardizem started. Currently NSR. Avg HR 98. Several small runs of SVT up to 10 beats seen at 160 bpm seen. Likely triggered by influenza and COPD exacerbation. TTE completed shows:LVEF 65-70%. Indeterminate diastolic function. Normal right ventricular structure and function. Mild tricuspid regurgitation. Moderate pulmonary hypertension. Stress test 07/2015 negative for ischemia. He is a CHADS VASc=2 for HTN and age. AC with warfarin or NOAC discussed again. Indication, use, and adverse effects discussed including increased risk of bleeding. He continues to have midepigastric discomfort with eating. will start PPI. No signs of bleeding. Hgb increased from yesterday at 13.6. Reports that he did not pay attention to stool color but it may have been dark. Instructed to keep an eye on stool color. Patient is agreeable to continue to monitor and continue eliquis. He is agreeable to NOAC. Eliquis was started yesterday. Increase cardizem to 180 for better control of tachyarrhythmias includin afib and SVT. Out-pt f/u will be scheduled by [facility]. We will sign off. Call with questions. (2) Elevated troponin Current Visit: Yes Status: Acute Mild troponin elevation. Initial EKG with no ST changes. EKG with afib with RVR with ST depression noted, likely due to demand ischemia from elevated HR. Troponin likely demand ischemia from influenza, COPD, hypoxia. Noted to be hypoxic during my exam. SPO2 89% on 2L. TTE shows preserved EF. No WMA. No further cardiac testing at this time. Discussion w patient/family: The assessment and plan as outlined above was discussed with the patient and/or family members who expressed understanding and agreement. All questions were answered. Thank you for involving us in the care of your patient. Please call with any questions. Subjective Principal diagnosis: atrial fibrillation Interval history: Currently NSR. Voiced concerns of bleeding on eliquis. Continues to have mid epigastric burning with eating. Improves with malox. I will start PPI. Objective Vital Signs, Last 4 Hours Temp Pulse Resp BP Pulse Ox 04/18/17 11:34 94 04/18/17 11:05 98 F 92 18 129/85 92 04/18/17 09:00 16 92 General: Conversant, No Apparent Distress HEENT: Atraumatic, Normocephaly, Mucus Membranes Moist Neck: No JVD, Normal carotid pulses Cardiac: Reg Rate and Rhythm, Normal S1 and S2, No Murmur Lungs: Normal Breath Sounds, No Wheeze, Rales, Rhonchi Neuro: Alert and responsive, No focal deficits noted Abdomen: Soft, Non-Tender Skin: No rashes noted on visualized skin Musculoskeletal: No Chest Wall Tenderness Extremities: No Clubbing, No Cyanosis, Normal Pulses, Other (Trace -1+ pitting edema bilateral ankles) Results 04/18/17 05:54 04/18/17 05:54 Lab Results 04/17/17 04/18/17 04/18/17 03:50 05:54 05:54 WBC 11.6 H Hgb 13.7 D Hct 42.8 Plt Count 232 Sodium 139 139 Potassium 4.7 4.6 Chloride 98 96 L Carbon Dioxide 36 H 38 H BUN 42 H 41 H Creatinine 1.11 0.93 Glucose 164 H 152 H Calcium 8.6 9.0 Total Bilirubin 0.2 L 0.3 AST 30 26 ALT 37 47 Alkaline Phosphatase 76 89 TSH 0.207 L - Imaging and Cardiology Echo: report reviewed Consult Discharge Plan - Plan Referrals: [facility],PCP [Primary Care Provider] - 04/25/17 9:30 am
--- NOTE | 2017-04-18 14:27 | Discharge Summary ---
Date of Encounter: 04/18/17 Time of Encounter: 14:22 - Discharge Diagnosis (1) Acute exacerbation of chronic obstructive airways disease Priority: Primary Status: Acute (2) Atrial fibrillation with rapid ventricular response Priority: Secondary Status: Acute (3) Hypertension Priority: Secondary Status: Chronic Qualifiers: Hypertension type: essential hypertension Qualified Code(s): I10 - Essential (primary) hypertension (4) Influenza A Priority: Secondary Status: Acute (5) Elevated troponin Priority: Secondary Status: Acute (6) DVT prophylaxis Priority: Secondary Status: Acute - Discharge Medications Prescriptions: GuaiFENesin Liq [Robitussin Liq] 200 mg PO Q6HR PRN #200 mls PRN Reason: Cough Apixaban [Eliquis] 5 mg PO BID #60 tablet Diltiazem CD (24hr) [Cardizem CD] 180 mg PO DAILY #30 cap.er.24h Famotidine [Pepcid] 20 mg PO BID #60 tablet Oseltamivir [Tamiflu] 75 mg PO BID #2 capsule predniSONE [PredniSONE] 10 mg PO DAILY 12 Days tablet Home Medications: Aspirin [Adult Low Dose Aspirin EC] 81 mg PO QPM 07/29/15 [History] Docusate [Colace] 100 mg PO QPM 07/29/15 [History] Vit A/C/E AC/Znox/Cupric Oxide [Eye Vitamin-Minerals Tablet] 1 tab PO DAILY 11/05 [History] Cholecalciferol (Vitamin D3) [Vitamin D3] 2,000 unit PO DAILY 04/14/17 [History] Hydrochlorothiazide [Microzide] 12.5 mg PO DAILY 04/14/17 [History] Lisinopril [Zestril] 10 mg PO DAILY 04/14/17 [History] Tamsulosin [Flomax] 0.8 mg PO DAILY 04/14/17 [History] Apixaban [Eliquis] 5 mg PO BID #60 tablet 04/18/17 [Rx] Diltiazem CD (24hr) [Cardizem CD] 180 mg PO DAILY #30 cap.er.24h 04/18/17 [Rx] Famotidine [Pepcid] 20 mg PO BID #60 tablet 04/18/17 [Rx] GuaiFENesin Liq [Robitussin Liq] 200 mg PO Q6HR PRN #200 mls 04/18/17 [Rx] Oseltamivir [Tamiflu] 75 mg PO BID #2 capsule 04/18/17 [Rx] predniSONE [PredniSONE] 10 mg PO DAILY 12 Days tablet 04/18/17 [Rx] Allergies/Adverse Reactions: 3 Allergy/AdvReac Type Severity Reaction Status Date / Time No Known Allergies Allergy Verified 04/14/17 13:15 Procedures/tests Complete & Pending: Procedures Performed prior 72 hours Category Date Time Status EKG [ECG 12 lead ECG] [ECG] Stat Y 04/16/17 12:07 Completed EV echocardiogram Routine Y 04/17/17 14:19 Completed Date of admission: 04/14/17 14:14 Primary care physician: PCP HI Consults: 04/16/17 14:30 Consult to Cardiology [CONS] Routine Comment: Consulting Provider: Cardiology Sumi Reason for Consult: New onset atrial fibrillation with rapid ventricular rate Call Completed: Yes Discharging clinician: Kevin Sky Anticipated date of discharge: 04/18/17 - Patient Status Disposition: Home, Self-Care Condition: Good Functional capacity at discharge: uses cane/walker Overall status at discharge: patient is progressing back to baseline - Discharge Instructions Instructions: Diltiazem (By mouth), Famotidine (By mouth), Prednisone (By mouth ), Guaifenesin (By mouth), Oseltamivir (By mouth), Apixaban (By mouth), Atrial Fibrillation (DC), Chronic Obstructive Pulmonary Disease (DC), Chronic Hypertension (DC) Follow Up With: [facility] [Primary Care Provider[facility] - 04/25/17 9:30 am Daniel Cowart DO [Partnered Physician] - (in 1-2 weeks) - Diet and Activity Activity: as per physical therapy, wear oxygen at all times Diet: low fat, low cholesterol, low salt diet Hospital course: Mr. Bright is a 77 year old male with history of COPD, hypertension, prostate cancer was hospitalized here with acute exacerbation of COPD and acute respiratory failure with hypoxia and hypercapnia. He was started on treatment for this with intravenous steroids, O2 supplementation and bronchodilators. He was then found to be positive for influenza A. He was started on treatment with Tamiflu. He has slowly recovered with this treatment regimen. During his stay he did develop atrial fibrillation with rapid ventricular response. He was treated for that with intravenous Cardizem and cardiology was consulted. Per their recommendations, he is now been placed on Cardizem CD 180 mg and is also being placed on eliquis for anticoagulation. Patient was evaluated for home oxygen and does appear to qualify for home oxygen so this will be provided for him. He is clinically stable to be discharged home today and will complete steroid taper and complete treatment course for his influenza A with Tamiflu. He will follow up with cardiology for further management of his atrial fibrillation. - Time Spent with Patient Total time spent providing and/or coordinating discharge services: Greater than 30 minutes (50 min) - Constitutional Vitals: Temp Pulse Resp BP Pulse Ox 98 F 92 18 129/85 94 04/18/17 11:05 04/18/17 11:05 04/18/17 11:05 04/18/17 11:05 04/18/17 11:34 General appearance: Present: cooperative, A&O X 3, pleasant, no acute distress, answers questions appropriately - Respiratory Respiratory exam: Present: prolonged expiratory phase, wheezes. Absent: accessory muscle use, rales, rhonchi - Cardiovascular Cardiovascular exam: Present: RRR, +S1, +S2. Absent: diastolic murmur, gallop, rubs, systolic murmur - GI/Abdominal GI/Abdominal exam: Present: normal bowel sounds, soft, no peritoneal signs. Absent: distended, tenderness - Extremities Exam Extremities exam: Present: warm, radial pulses palpable and symmetrical. Absent : calf tenderness, cyanotic, pedal edema - Neurological Exam Neurological exam: Present: alert, oriented X3, no focal deficits. Absent: facial droop, speech deficit
[2017-04-19] MEDS ORDERED: Diltiazem CD (24hr) 180 MG CAPSULE PO SCH (09:00)
== END 2017-04-18 15:55 | disposition home or self-care (01) | DRG 190 ==
LOC: EMEROO 12:34 → 2ANU 14:14 → SUATTDRO 14:14 → 2ANU 15:15 → 2NNU 04-16 14:28
PROVIDERS: ADMIT Internal Medicine Nephrology; ATTEND Internal Medicine

== ENCOUNTER 2022-02-01 08:16 | Inpatient (IN) ==
[2022-02-01] MEDS ORDERED: 0.9 % Sodium Chloride 1,000 ML IVC ONE (08:27)
[2022-02-01 08:48] LABS: Basophils % 0.2 %; Eosinophils # 0.2 K/mcL (0.0-0.6); Eosinophils % 1.4 %; Hematocrit 40.4 % (37.5-50.1); Hemoglobin 13.1 g/dL (12.9-16.9); Lymphocytes # 0.9 K/mcL (0.6-4.6); Lymphocytes % 5.8 %; Mean Corpuscular HGB Conc 32.4 g/dL (31.6-35.5); Mean Corpuscular Hemoglobin 32.3 pg (28.0-33.3); Mean Corpuscular Volume 99.5 fL (83.0-100.0); Mean Platelet Volume 10.1 fL (9.4-12.4); Monocytes # 1.4 K/mcL (0.0-1.3); Monocytes % 8.9 %; Neutrophils # 12.6 K/mcL (1.6-8.9); Platelet Count 208 K/mcL (140-400); Red Blood Count 4.06 M/mcL (4.19-5.50); Red Cell Distribution Width 13.7 % (11.5-14.5); Segmented Neutrophils % 82.7 %; White Blood Count 15.3 K/mcL (4.3-11.1)
[2022-02-01 09:08] LABS: Calcium 9.2 mg/dL (8.6-10.3); Magnesium 1.8 mg/dL (1.6-2.6); Potassium 4.9 mEq/L (3.5-5.1); Troponin I 0.03 ng/mL (< 0.04)
[2022-02-01 09:32] LABS: Influenza A PCR Negative (Negative); Influenza B PCR Negative (Negative); Resp. Syncytial Virus PCR Negative (Negative)
[2022-02-01 09:40] LABS: SARS-CoV-2 by PCR (In House) Negative (Negative)
[2022-02-01 10:21] LABS: Bilirubin,Urine Negative (Negative); Blood,Urine Negative (Negative); Clarity,Urine Clear (Clear); Color,Urine Light-Yellow (Yellow); Glucose,Urine (UA) Normal (Normal); Ketones,Urine Negative (Negative); Leukocyte Esterase,Urine Negative (Negative); Nitrite,Urine Negative (Negative); Protein,Urine Trace mg/dL (Neg-Trace); Specific Gravity,Urine 1.019 (1.010-1.025); Urobilinogen,Urine Normal (Normal)
[2022-02-01] MEDS ORDERED: Ondansetron 4 MG/2 ML VIAL IVP PRN (12:55)
[2022-02-01] MEDS ORDERED: Naloxone 0.4 MG/ML INJ IVP PRN (12:55)
[2022-02-01] MEDS ORDERED: Melatonin 3 MG TABLET PO PRN (12:55)
[2022-02-01] MEDS: 0.9 % Sodium Chloride 1,000 ML IVC SCH (14:34)
[2022-02-01] MEDS ORDERED: Dextrose Gel 15 GM/37.5 ML TUBE PO PRN ×2 (15:53)
[2022-02-01] MEDS ORDERED: D5% in Water 1,000 ML IVC PRN (15:53)
[2022-02-01] MEDS ORDERED: *HR* Dextrose 50 % in Water (Syg) 50 ML SYRINGE IVP PRN (15:53)
[2022-02-01] MEDS: Insulin LISPRO 300 UNITS/3 ML VIAL SUBQ SCH ×2 (16:32→21:47)
[2022-02-01] MEDS: *HR* Rivaroxaban 10 MG TABLET PO SCH (17:02)
[2022-02-01] MEDS: Acetaminophen 325 MG TABLET PO PRN (21:54)
[2022-02-02 02:51] LABS: Basophils % 0.2 %; Eosinophils # 0.4 K/mcL (0.0-0.6); Eosinophils % 2.1 %; Hematocrit 30.7 % (37.5-50.1); Hemoglobin 9.7 g/dL (12.9-16.9); Immature Granulocytes % 1.2 % (0-4); Lymphocytes % 10.9 %; Mean Corpuscular HGB Conc 31.6 g/dL (31.6-35.5); Mean Corpuscular Volume 101.3 fL (83.0-100.0); Mean Platelet Volume 10.3 fL (9.4-12.4); Monocytes # 1.4 K/mcL (0.0-1.3); Monocytes % 7.6 %; Neutrophils # 14.5 K/mcL (1.6-8.9); Platelet Count 163 K/mcL (140-400); Red Blood Count 3.03 M/mcL (4.19-5.50); Red Cell Distribution Width 13.8 % (11.5-14.5); White Blood Count 18.5 K/mcL (4.3-11.1)
[2022-02-02 03:02] LABS: Estimated Average Glucose 123 mg/dl; Hemoglobin A1C 5.9 %
[2022-02-02 03:18] LABS: Calcium 7.9 mg/dL (8.6-10.3); Magnesium 1.9 mg/dL (1.6-2.6); Potassium 3.9 mEq/L (3.5-5.1)
[2022-02-02] MEDS: 0.9 % Sodium Chloride 1,000 ML IVC SCH (03:57)
[2022-02-02] MEDS: Acetaminophen 325 MG TABLET PO PRN (05:52)
[2022-02-02] MEDS: Insulin LISPRO 300 UNITS/3 ML VIAL SUBQ SCH ×4 (07:41→20:45)
[2022-02-02 07:42] LABS: Adenovirus Not Detected (Not Detect); Bordetella Pertussis Not Detected (Not Detect); Chlamydophila pneumoniae Not Detected (Not Detect); Coronavirus 229E Not Detected (Not Detect); Coronavirus HKU1 Not Detected (Not Detect); Coronavirus NL63 Not Detected (Not Detect); Coronavirus OC43 Not Detected (Not Detect); Human Metapneumovirus Not Detected (Not Detect); Human Rhinovirus/Enterovirus Not Detected (Not Detect); Influenza A Subtype 2009 H1 Not Detected (Not Detect); Influenza B Not Detected (Not Detect); Mycoplasma pneumoniae Not Detected (Not Detect); Parainfluenza Virus 1 Not Detected (Not Detect); Parainfluenza Virus 2 Not Detected (Not Detect); Parainfluenza Virus 3 Not Detected (Not Detect); Parainfluenza Virus 4 Not Detected (Not Detect); Respiratory Syncytial Virus Not Detected (Not Detect); SARS-CoV-2 Not Detected (Not Detect)
[2022-02-02] MEDS: Metoprolol XL (24 HR) Succ 25 MG TAB.ER.24H PO SCH (09:27)
[2022-02-02] MEDS: Budesonide/Formoterol 160/4.5 1 PUFF INH IH SCH ×2 (10:59→19:56)
[2022-02-02] MEDS ORDERED: Azithromycin 500 MG VIAL ONE (14:18)
[2022-02-02] MEDS: Azithromycin 500 MG in 0.9 % Sodium Chloride 250 ML IVPB SCH (14:28)
[2022-02-02] MEDS: cefTRIAXone 1,000 MG in 0.9 % Sodium Chloride 10 ML IVP SCH (16:47)
[2022-02-02] MEDS: *HR* Rivaroxaban 10 MG TABLET PO SCH (16:47)
[2022-02-03 03:38] LABS: Basophils % 0.2 %; Eosinophils # 0.2 K/mcL (0.0-0.6); Hematocrit 31.8 % (37.5-50.1); Immature Granulocytes % 1.1 % (0-4); Lymphocytes # 1.8 K/mcL (0.6-4.6); Lymphocytes % 10.6 %; Mean Corpuscular HGB Conc 31.4 g/dL (31.6-35.5); Mean Corpuscular Hemoglobin 31.9 pg (28.0-33.3); Mean Corpuscular Volume 101.6 fL (83.0-100.0); Mean Platelet Volume 10.8 fL (9.4-12.4); Monocytes # 1.6 K/mcL (0.0-1.3); Monocytes % 9.1 %; Neutrophils # 13.4 K/mcL (1.6-8.9); Platelet Count 175 K/mcL (140-400); Red Blood Count 3.13 M/mcL (4.19-5.50); Red Cell Distribution Width 13.6 % (11.5-14.5); White Blood Count 17.2 K/mcL (4.3-11.1)
[2022-02-03 04:04] LABS: Calcium 8.3 mg/dL (8.6-10.3); Potassium 4.2 mEq/L (3.5-5.1)
[2022-02-03] MEDS: Insulin LISPRO 300 UNITS/3 ML VIAL SUBQ SCH ×4 (07:07→20:23)
[2022-02-03] MEDS: Budesonide/Formoterol 160/4.5 1 PUFF INH IH SCH ×2 (07:55→20:10)
[2022-02-03] MEDS: Metoprolol XL (24 HR) Succ 25 MG TAB.ER.24H PO SCH (08:31)
[2022-02-03] MEDS ORDERED: Azithromycin 500 MG VIAL ONE (15:46)
[2022-02-03] MEDS: Azithromycin 500 MG in 0.9 % Sodium Chloride 250 ML IVPB SCH (15:52)
[2022-02-03] MEDS: cefTRIAXone 1,000 MG in 0.9 % Sodium Chloride 10 ML IVP SCH (15:52)
[2022-02-03] MEDS: *HR* Rivaroxaban 10 MG TABLET PO SCH (17:15)
[2022-02-04] MEDS: Acetaminophen 325 MG TABLET PO PRN (06:04)
[2022-02-04 06:17] LABS: Basophils % 0.2 %; Eosinophils # 0.4 K/mcL (0.0-0.6); Eosinophils % 3.1 %; Hematocrit 28.3 % (37.5-50.1); Hemoglobin 9.1 g/dL (12.9-16.9); Immature Granulocytes % 0.8 % (0-4); Lymphocytes # 1.4 K/mcL (0.6-4.6); Lymphocytes % 12.4 %; Mean Corpuscular HGB Conc 32.2 g/dL (31.6-35.5); Mean Corpuscular Hemoglobin 32.2 pg (28.0-33.3); Mean Platelet Volume 10.5 fL (9.4-12.4); Monocytes # 1.3 K/mcL (0.0-1.3); Monocytes % 11.5 %; Neutrophils # 8.3 K/mcL (1.6-8.9); Platelet Count 179 K/mcL (140-400); Red Blood Count 2.83 M/mcL (4.19-5.50); Red Cell Distribution Width 13.2 % (11.5-14.5); White Blood Count 11.5 K/mcL (4.3-11.1)
[2022-02-04 06:37] LABS: Calcium 8.3 mg/dL (8.6-10.3); Potassium 4.3 mEq/L (3.5-5.1)
[2022-02-04] MEDS: Insulin LISPRO 300 UNITS/3 ML VIAL SUBQ SCH ×4 (07:30→20:38)
[2022-02-04] MEDS: Metoprolol XL (24 HR) Succ 25 MG TAB.ER.24H PO SCH (07:31)
[2022-02-04] MEDS: Budesonide/Formoterol 160/4.5 1 PUFF INH IH SCH ×2 (10:00→19:43)
[2022-02-04] MEDS ORDERED: Azithromycin 500 MG VIAL ONE (15:27)
[2022-02-04] MEDS: cefTRIAXone 1,000 MG in 0.9 % Sodium Chloride 10 ML IVP SCH (15:46)
[2022-02-04] MEDS: Azithromycin 500 MG in 0.9 % Sodium Chloride 250 ML IVPB SCH (15:46)
[2022-02-04] MEDS: *HR* Rivaroxaban 10 MG TABLET PO SCH (16:58)
[2022-02-05] MEDS: Acetaminophen 325 MG TABLET PO PRN ×2 (03:57→20:05)
[2022-02-05] MEDS: Budesonide/Formoterol 160/4.5 1 PUFF INH IH SCH ×2 (08:11→20:03)
[2022-02-05] MEDS: Metoprolol XL (24 HR) Succ 25 MG TAB.ER.24H PO SCH (09:26)
[2022-02-05] MEDS: Insulin LISPRO 300 UNITS/3 ML VIAL SUBQ SCH ×4 (09:30→20:23)
[2022-02-05] MEDS ORDERED: Furosemide 40 MG/4 ML VIAL IVP ONE (13:22)
[2022-02-05] MEDS ORDERED: Furosemide 20 MG/2 ML VIAL IVP ONE (13:34)
[2022-02-05] MEDS: cefTRIAXone 1,000 MG in 0.9 % Sodium Chloride 10 ML IVP SCH (16:39)
[2022-02-05] MEDS: Azithromycin 500 MG in 0.9 % Sodium Chloride 250 ML IVPB SCH (16:40)
[2022-02-05] MEDS: *HR* Rivaroxaban 10 MG TABLET PO SCH (17:48)
[2022-02-06 03:10] LABS: Calcium 8.6 mg/dL (8.6-10.3); Potassium 4.1 mEq/L (3.5-5.1)
[2022-02-06] MEDS: Metoprolol XL (24 HR) Succ 25 MG TAB.ER.24H PO SCH (07:38)
[2022-02-06] MEDS: Insulin LISPRO 300 UNITS/3 ML VIAL SUBQ SCH ×4 (07:40→19:55)
[2022-02-06] MEDS: Budesonide/Formoterol 160/4.5 1 PUFF INH IH SCH ×2 (08:15→20:28)
[2022-02-06] MEDS: Furosemide 40 MG/4 ML VIAL IVP SCH ×2 (10:47→18:26)
[2022-02-06] MEDS: cefTRIAXone 1,000 MG in 0.9 % Sodium Chloride 10 ML IVP SCH (13:39)
[2022-02-06] MEDS: Azithromycin 500 MG in 0.9 % Sodium Chloride 250 ML IVPB SCH (13:40)
[2022-02-06] MEDS: Albumin 25% 25gram/100mL 25 GM/100 ML IV.SOLN IVPB SCH ×2 (16:31→22:55)
[2022-02-06] MEDS: *HR* Rivaroxaban 10 MG TABLET PO SCH (16:47)
[2022-02-07] MEDS: Acetaminophen 325 MG TABLET PO PRN (05:06)
[2022-02-07] MEDS: Albumin 25% 25gram/100mL 25 GM/100 ML IV.SOLN IVPB SCH (06:52)
[2022-02-07] MEDS: Furosemide 40 MG/4 ML VIAL IVP SCH (06:52)
[2022-02-07] MEDS: Metoprolol XL (24 HR) Succ 25 MG TAB.ER.24H PO SCH (06:52)
[2022-02-07] MEDS: Insulin LISPRO 300 UNITS/3 ML VIAL SUBQ SCH (07:08)
[2022-02-07] MEDS: Budesonide/Formoterol 160/4.5 1 PUFF INH IH SCH (07:13)
[2022-02-07 09:24] LABS: Calcium 9.8 mg/dL (8.6-10.3); Potassium 3.7 mEq/L (3.5-5.1)
[2022-02-07 10:52] VITALS: BP 107/66; PULSE 94; TEMP 97.3; O2SAT 90
== END 2022-02-07 16:35 | disposition home health service (06) | DRG 193 ==
LOC: EMEROOARM 08:16 → 3BNU 08:16 → SUATTDRO 12:55 → 3BNU 13:46
PROVIDERS: ADMIT Hospitalist; ATTEND Registered Nurse